=== PATIENT | female | born 1950 | race Caucasian/White ===

== ENCOUNTER 2016-07-08 16:11 | Emergency (ER) | payer OTHER, BC ==
[~2016-07-08] VITALS: Ht 165.1 cm; Wt 91.6 kg
[2016-07-08] MEDS ORDERED: LISINOPRIL5 MG PO (16:30)
[2016-07-08] MEDS ORDERED: ALLOPURINOL100 MG PO ×2 (16:31)
[2016-07-08] MEDS ORDERED: MELOXICAM7.5 MG PO (16:32)
[2016-07-08] MEDS ORDERED: METFORMIN HCL500 MG PO (16:32)
[2016-07-08 17:51] VITALS: BP 134/67
== END 2016-07-08 17:52 | disposition home or self-care (01) ==
LOC: EME → EDBD 16:11 → EME 16:11
DX: S70.01XA Contusion of right hip, initial encounter (principal); E11.9 Type 2 diabetes mellitus without complications; I10 Essential (primary) hypertension; W01.0XXA Fall on same level from slipping, tripping and stumbling without subsequent striking against object, initial encounter; Z88.2 Allergy status to sulfonamides; Z88.0 Allergy status to penicillin
CPT/HCPCS: 73502; 73552; 93005; 99281; 99285; J2405